=== PATIENT | female | born 1935 | race Caucasian/White ===

== ENCOUNTER 2017-04-06 12:54 | Emergency (ER) | payer OTHER ==
[~2017-04-06 12:54] MED LIST: ALDACTONE25 MG PO; CIPROFLOXACIN500 M1 PO; COREG12.5 MG PO; DEMADEX10 MG PO; FERROUS SULFAT325 M1 PO; FLONASE AL50 MCG/ACT IN; MIRAPEX0.5 MG PO; OXAYDO5 MG PO; PRILOSEC20 MG PO; TRAMADOL HCL50 MG PO; VITAMIN D-31000 UNIT PO
--- NOTE | 2017-04-06 14:27 | DIAGNOSTIC IMAGING REPORT ---
PROCEDURE: XR CHEST 1 VIEW INDICATION: SHORTNESS OF BREATH TECHNIQUE: Portable AP view 02:22 p.m. COMPARISON: None. FINDINGS: Small right basilar infiltrate versus atelectasis. Mild cardiomegaly. Mediastinum and pulmonary vessels are normal. Right shoulder anterior dislocation. IMPRESSION: 1. Small right basilar infiltrate versus atelectasis 2. Mild cardiomegaly 3. Dislocated right shoulder
--- NOTE | 2017-04-06 18:20 | ED ORDER SUMMARY ---
..... Patient: INNA BEAR OrderSheet [facility] VisitID: [id number] [place] [address] 81y, F Registration Date/Time: 04/06/2017 ORDER SHEET Weight: 65.7 kg (stated) Allergies: GENERAL ORDERS: EKG - ER Stat (13:17 04/06/2017 LNations ER Tech1 per protocol) (13:17 LNations ER Tech1) Chest 1V Urgent (14:14 04/06/2017 Marva SALINAS) (Ack 14:16 PWeiler ER Tech1) (16:43 CHernandez R.N.) Customer Supply Coordinator (Continuous) (14:14 04/06/2017 Marva SALINAS) (Ack 14:26 Shanikanandez R.N.) (14:26 CHernandez R.N.) CBC w Diff Urgent (14:14 04/06/2017 Marva SALINAS) (Ack 14:16 PWeiler ER Tech1) (14:26 CHernandez R.N.) CMP Urgent (14:14 04/06/2017 Marva SALINAS) (Ack 14:16 PWeiler ER Tech1) (14:26 Shanikanandez R.N.) Pulse oximeter (14:14 04/06/2017 Marva SALINAS) (Ack 14:26 Shanikanandez R.N.) (14:26 CHernandez R.N.) MEDICATION ORDERS: Prednisone PO 10 mg (NOW) (14:14 04/06/2017 Marva SALINAS) (Ack 14:26 Radha R.N.) (14:48 Shanikanandez R.N.) Zithromax PO 500 mg (NOW) (16:47 04/06/2017 Marva SALINAS) (17:06 DDean R.N.) IV FLUIDS: Rocephin IV 2 gm/50mL (NOW) (16:47 04/06/2017 Marva SALINAS) (17:16 DDean R.N.) IV NS : initial bolus none -, then 50 mL/hr for X1 (NOW) (for IVPB infusion) (17:16 04/06/2017 DDean R.N. per protocol) (17:17 DDean R.N.) ORDER SHEET NOTES: [Electronically signed by Deny Castrejon R.N. (18:32 04/06/2017)] [Electronically signed by Sheryl Trejo MD (06:53 04/17/2017)] [Electronically locked/signed by Deny Castrejon R.N. (18:32 04/06/2017)]
--- NOTE | 2017-04-06 18:20 | ED ORDER SUMMARY ---
..... Patient: INNA BEAR OrderSheet [facility] VisitID: [id number] [place] [address] 81y, F Registration Date/Time: 04/06/2017 ORDER SHEET Weight: 65.7 kg (stated) Allergies: GENERAL ORDERS: EKG - ER Stat (13:17 04/06/2017 LNations ER Tech1 per protocol) (13:17 LNations ER Tech1) Chest 1V Urgent (14:14 04/06/2017 Marva SALINAS) (Ack 14:16 PWeiler ER Tech1) (16:43 CHernandez R.N.) Card Puncher (Continuous) (14:14 04/06/2017 Marva SALINAS) (Ack 14:26 Shanikanandez R.N.) (14:26 CHernandez R.N.) CBC w Diff Urgent (14:14 04/06/2017 Marva SALINAS) (Ack 14:16 PWeiler ER Tech1) (14:26 CHernandez R.N.) CMP Urgent (14:14 04/06/2017 Marva SALINAS) (Ack 14:16 PWeiler ER Tech1) (14:26 Shanikanandez R.N.) Pulse oximeter (14:14 04/06/2017 Marva SALINAS) (Ack 14:26 Shanikanandez R.N.) (14:26 CHernandez R.N.) MEDICATION ORDERS: Prednisone PO 10 mg (NOW) (14:14 04/06/2017 Marva SALINAS) (Ack 14:26 Radha R.N.) (14:48 Shanikanandez R.N.) Zithromax PO 500 mg (NOW) (16:47 04/06/2017 Marva SALINAS) (17:06 DDean R.N.) IV FLUIDS: Rocephin IV 2 gm/50mL (NOW) (16:47 04/06/2017 Marva SALINAS) (17:16 DDean R.N.) IV NS : initial bolus none -, then 50 mL/hr for X1 (NOW) (for IVPB infusion) (17:16 04/06/2017 DDean R.N. per protocol) (17:17 DDean R.N.) ORDER SHEET NOTES: [Electronically signed by Deny Castrejon R.N. (18:32 04/06/2017)] [Electronically signed by Sheryl Trejo MD (06:53 04/17/2017)] [Electronically locked/signed by Deny Castrejon R.N. (18:32 04/06/2017)]
--- NOTE | 2017-04-06 18:20 | ED NURSING NOTES ---
Clinical Report - Nurses [facility] [address] [place] [address] 04/06/2017 12:54 Patient: INNA BEAR TRIAGE Triage time 12:54. Acuity: LEVEL 3. Chief Complaint: SHORTNESS OF BREATH. 12:54 04/06/17. 12:54 04/06/17. Alert. No acute distress. SEPSIS SCREEN: Sepsis Screen. Negative (no infection suspected/documented). --12:57 Alfonso Salinas R.N. 12:54 04/06/17. BP: 174/79. HR: 81. RR: 20. O2 saturation: 98% on nasal cannula at 2 liters/minute. Temp: 98.2 F (oral). Pain level now: 5/10. --12:57 Alfonso Salinas R.N. Weight: 65.7 kg stated. Height/Length: 64 inches Per Patient. BMI: 24.9. --12:54 Alfonso Salinas R.N. Medication/allergy information source: the patient and EMS. --12:57 Alfonso Salinas R.N. History Arrived by EMS. Historian: patient. Accompanied by (caregiver). 12:54 04/06/17. ( Thursday, off/on for the past few days, with left and right rib pain). She has had a cough. Treatment MARITIME PILOT: None. PAST MEDICAL HX: Immunizations not up to date. SOCIAL HX: Former smoker (quit 2006). No alcohol use or drug use. No infectious disease exposure. ABUSE ASSESSMENT: No report of abuse. FALL RISK ASSESSMENT: Fall risk assessment completed. No fall risk identified. NUTRITIONAL RISK ASSESSMENT: The nutritional risk assessment revealed no deficiencies. FUNCTIONAL ASSESSMENT: Functional assessment: no impairments noted. LEARNING NEEDS ASSESSMENT: The learning needs assessment revealed no barriers. SKIN INTEGRITY ASSESSMENT: Skin integrity risk assessment completed. No skin integrity risk identified. --12:57 Alfonso Salinas R.N. Primary physician (MONIQUE). Treatment MARITIME PILOT: See EMS report. ( EKG time 1207 by EMS-NSR). --12:59 Alfonso Salinas R.N. Treatment MARITIME PILOT: See EMS report. O2 saturation: 97 % room air. ( SOB since Thursday, history of COPD). --12:59 Alfonso Salinas R.N. Assessment 12:54 04/06/17. --12:57 Alfonso Salinas R.N. Interventions 12:54 04/06/17. ID and allergy band on patient. To treatment room. --12:57 Alfonso Salinas R.N. PHYSICAL ASSESSMENT 12:58 04/06/17. To room via stretcher. GENERAL / NEURO / PSYCH: Alert. Oriented X 4. RESPIRATORY: Mild respiratory distress. The patient can speak in full sentences. CVS: Capillary refill less than 2 seconds. SKIN: Skin is warm and dry. --12:58 Alfonso Salinas R.N. NURSING PROGRESS NOTES 12:58 04/06/17. The plan of care for this patient has been created. construction foreman, pulse oximeter and NIBP monitor placed on patient; monitor alarms on. Patient gowned. Head of bed elevated. Two patient identifiers checked. Call light placed in reach. Side rails up. Bed placed in lowest position. Brakes of bed on. --12:58 Alfonso Salinas R.N. Reassessment after oxygen administered. She is calm and resting quietly. Overall patient status is improved- she states feels better. RESPIRATORY: Decreased breath sounds in the bases bilaterally. CVS: Cardiac rhythm: normal sinus rhythm. SKIN: Skin is warm and dry. Skin color within normal limits. --13:17 Deny Castrejon R.N. 13:16 04/06/17. BP: 163/79. HR: 80. RR: 18. O2 saturation: 100% on nasal cannula at 2 liters/minute. --13:17 Deny Castrejon R.N. EKG time: (1310). EKG was ordered, performed by a tech and shown to the ED physician. --13:23 Marry Briggs ER Tech1 14:38 04/06/2017 Prednisone PO Tablets 10 mg given. Allergies verified and confirmed 5 rights. --14:48 Deny Castrejon R.N. 14:48 04/06/17. BP: 171/76. HR: 90. RR: 18. O2 saturation: 96% on nasal cannula at 2 liters/minute. --14:50 Deny Castrejon R.N. Cardiac rhythm: normal sinus rhythm. Reassessment after medication administered. She is calm and resting quietly. Overall patient status is improved- she states feels better. ( Patient was up to the commode chair to void, slight SOBOE otherwise in no distress. Settled back to bed after and given sandwich and coffee.). RESPIRATORY: No respiratory distress. CVS: Normal sinus rhythm noted. SKIN: Skin is warm and dry. Skin color within normal limits. --14:50 Deny Castrejon R.N. 15:33 04/06/17. BP: 171/101. HR: 100. RR: 18. O2 saturation: 100%. --15:36 Deny Castrejon R.N. Cardiac rhythm: normal sinus rhythm. The patient is calm and resting quietly. Overall patient status is improved- she states feels better. RESPIRATORY: No respiratory distress. SKIN: Skin is warm and dry. Skin color within normal limits. --15:36 Deny Castrejon R.N. Cardiac rhythm: normal sinus rhythm. The patient is calm and resting quietly. Overall patient status is improved- she states feels better. RESPIRATORY: No respiratory distress. SKIN: Skin is warm and dry. Skin color within normal limits. --16:10 Dney Castrejon R.N. 16:08 04/06/17. BP: 153/100. HR: 78. RR: 18. O2 saturation: 100%. --16:10 Deny Castrejon R.N. Cardiac rhythm: normal sinus rhythm. The patient is calm and resting quietly. Overall patient status is improved- she states feels better. RESPIRATORY: No respiratory distress. CVS: Normal sinus rhythm noted. SKIN: Skin is warm and dry. Skin color within normal limits. --16:41 Deny Castrejon R.N. 16:40 04/06/17. BP: 165/69. HR: 72. RR: 18. O2 saturation: 99% on nasal cannula at 2 liters/minute. --16:41 Deny Castrejon R.N. 13:15 04/06/2017 Site #1 started via IV in the left antecubital space with an 20g angiocath; one attempt. Blood drawn: rainbow set. Labeled in the presence of the patient and sent to the lab. Saline lock flushed with 10 mL saline (By Bjorn VARGAS). --17:15 Stephani Valladares R.N. 17:06 04/06/2017 Zithromax PO Tablets 500 mg given. Allergies verified and confirmed 5 rights. --17:06 Stephani Valladares R.N. 17:10 04/06/2017 Started 2 gm of Rocephin (CefTRIAXone Sodium) IVPB in bag #1 50 mL; at 150 mL/hr over 20 minute(s) via site #1 --17:16 Stephani Valladares R.N. 17:10 04/06/2017 Started bag #1 250 mL IV Fluids IV NS (Saline); at 50 mL/hr over 1 minute(s) via site #1 via IV pump. --17:17 Stephani Valladares R.N. 17:10 04/06/17. BP: 158/72. HR: 76. RR: 18. O2 saturation: 100%. Temp: deferred. Additional comments: called for ride home. --17:22 Stephani Valladares R.N. Cardiac rhythm: normal sinus rhythm. Reassessment after fluids administered and medication administered. She is calm and resting quietly. Overall patient status is improved- she states feels better. RESPIRATORY: No respiratory distress. SKIN: Skin is warm and dry. Skin color within normal limits. --17:27 Deny Castrejon R.N. 17:26 04/06/17. BP: 158/72. HR: 74. RR: 18. O2 saturation: 100% on nasal cannula at 2 liters/minute. --17:27 Deny Castrejon R.N. 17:34 04/06/2017 Rocephin IVPB Discontinued: bag #1 infused upon discharge. Total amount infused: 50 mL. IV patency established. IV site checked: no pain, redness, or swelling. IV flushed thoroughly. --17:39 Deny Castrejon R.N. 17:39 04/06/2017 IV Fluids IV NS Discontinued: bag #1 infused upon discharge. Total amount infused: 50 mL. IV patency established. IV site checked: no pain, redness, or swelling. IV flushed thoroughly. --17:39 Deny Castrejon R.N. 17:39 04/06/17. BP: 161/72. HR: 78. RR: 18. O2 saturation: 100% on nasal cannula at 2 liters/minute. --17:40 Deny Castrejon R.N. Cardiac rhythm: normal sinus rhythm. Reassessment after fluids administered and medication administered. She is calm and resting quietly. Overall patient status is improved- she states feels better. RESPIRATORY: No respiratory distress. SKIN: Skin is warm and dry. Skin color within normal limits. --17:40 Deny Castrejon R.N. 17:40 04/06/2017 Site #1 removed upon discharge. Pressure dressing applied. --17:40 Deny Castrejon R.N. ( assisted pt. up to use commode. 300cc output of urine. Assisted pt. back to bed.). --18:21 Marry Briggs, Tech1. DISPOSITION / DISCHARGE Cardiac rhythm: normal sinus rhythm. Condition at departure: improved. No learning barriers present. Discharge instructions provided and reviewed with the caregiver and patient. Reviewed medication(s) side effects, precautions, dosing and course information. Prescription(s) given to the maintenance service technician. Patient verbalized understanding. Written instructions provided in [place]. Caregiver verbalized understanding. The patient was discharged home and accompanied by caregiver. She left the Emergency Department in a wheelchair and via private vehicle. Driving (caregiver). --18:25 Deny Castrejon R.N. 18:23 04/06/17. BP: 161/72. HR: 84. RR: 20. O2 saturation: 96% on room air. Temp: 98.4 F. --18:25 Deny Castrejon R.N. Departure time: 18:31. --18:31 Deny Castrejon R.N. Locked/Released at 04/06/2017 18:32 by Deny Castrejon R.N.
--- NOTE | 2017-04-06 18:20 | ED NURSING NOTES ---
Clinical Report - Nurses [facility] [address] [place] [address] 04/06/2017 12:54 Patient: INNA BEAR TRIAGE Triage time 12:54. Acuity: LEVEL 3. Chief Complaint: SHORTNESS OF BREATH. 12:54 04/06/17. 12:54 04/06/17. Alert. No acute distress. SEPSIS SCREEN: Sepsis Screen. Negative (no infection suspected/documented). --12:57 Alfonso Salinas R.N. 12:54 04/06/17. BP: 174/79. HR: 81. RR: 20. O2 saturation: 98% on nasal cannula at 2 liters/minute. Temp: 98.2 F (oral). Pain level now: 5/10. --12:57 Alfonso Salinas R.N. Weight: 65.7 kg stated. Height/Length: 64 inches Per Patient. BMI: 24.9. --12:54 Alfonso Salinas R.N. Medication/allergy information source: the patient and EMS. --12:57 Alfonso Salinas R.N. History Arrived by EMS. Historian: patient. Accompanied by (caregiver). 12:54 04/06/17. ( Thursday, off/on for the past few days, with left and right rib pain). She has had a cough. Treatment MEALS ON WHEELS DRIVER: None. PAST MEDICAL HX: Immunizations not up to date. SOCIAL HX: Former smoker (quit 2006). No alcohol use or drug use. No infectious disease exposure. ABUSE ASSESSMENT: No report of abuse. FALL RISK ASSESSMENT: Fall risk assessment completed. No fall risk identified. NUTRITIONAL RISK ASSESSMENT: The nutritional risk assessment revealed no deficiencies. FUNCTIONAL ASSESSMENT: Functional assessment: no impairments noted. LEARNING NEEDS ASSESSMENT: The learning needs assessment revealed no barriers. SKIN INTEGRITY ASSESSMENT: Skin integrity risk assessment completed. No skin integrity risk identified. --12:57 Alfonso Salinas R.N. Primary physician (MONIQUE). Treatment MEALS ON WHEELS DRIVER: See EMS report. ( EKG time 1207 by EMS-NSR). --12:59 Alfonso Salinas R.N. Treatment MEALS ON WHEELS DRIVER: See EMS report. O2 saturation: 97 % room air. ( SOB since Thursday, history of COPD). --12:59 Alfonso Salinas R.N. Assessment 12:54 04/06/17. --12:57 Alfonso Salinas R.N. Interventions 12:54 04/06/17. ID and allergy band on patient. To treatment room. --12:57 Alfonso Salinas R.N. PHYSICAL ASSESSMENT 12:58 04/06/17. To room via stretcher. GENERAL / NEURO / PSYCH: Alert. Oriented X 4. RESPIRATORY: Mild respiratory distress. The patient can speak in full sentences. CVS: Capillary refill less than 2 seconds. SKIN: Skin is warm and dry. --12:58 Alfonso Salinas R.N. NURSING PROGRESS NOTES 12:58 04/06/17. The plan of care for this patient has been created. potline monitor, pulse oximeter and NIBP monitor placed on patient; monitor alarms on. Patient gowned. Head of bed elevated. Two patient identifiers checked. Call light placed in reach. Side rails up. Bed placed in lowest position. Brakes of bed on. --12:58 Alfonso Salinas R.N. Reassessment after oxygen administered. She is calm and resting quietly. Overall patient status is improved- she states feels better. RESPIRATORY: Decreased breath sounds in the bases bilaterally. CVS: Cardiac rhythm: normal sinus rhythm. SKIN: Skin is warm and dry. Skin color within normal limits. --13:17 Deny Castrejon R.N. 13:16 04/06/17. BP: 163/79. HR: 80. RR: 18. O2 saturation: 100% on nasal cannula at 2 liters/minute. --13:17 Deny Castrejon R.N. EKG time: (1310). EKG was ordered, performed by a tech and shown to the ED physician. --13:23 Marry Briggs ER Tech1 14:38 04/06/2017 Prednisone PO Tablets 10 mg given. Allergies verified and confirmed 5 rights. --14:48 Deny Castrejon R.N. 14:48 04/06/17. BP: 171/76. HR: 90. RR: 18. O2 saturation: 96% on nasal cannula at 2 liters/minute. --14:50 Deny Castrejon R.N. Cardiac rhythm: normal sinus rhythm. Reassessment after medication administered. She is calm and resting quietly. Overall patient status is improved- she states feels better. ( Patient was up to the commode chair to void, slight SOBOE otherwise in no distress. Settled back to bed after and given sandwich and coffee.). RESPIRATORY: No respiratory distress. CVS: Normal sinus rhythm noted. SKIN: Skin is warm and dry. Skin color within normal limits. --14:50 Deny Castrejon R.N. 15:33 04/06/17. BP: 171/101. HR: 100. RR: 18. O2 saturation: 100%. --15:36 Deny Castrejon R.N. Cardiac rhythm: normal sinus rhythm. The patient is calm and resting quietly. Overall patient status is improved- she states feels better. RESPIRATORY: No respiratory distress. SKIN: Skin is warm and dry. Skin color within normal limits. --15:36 Deny Castrejon R.N. Cardiac rhythm: normal sinus rhythm. The patient is calm and resting quietly. Overall patient status is improved- she states feels better. RESPIRATORY: No respiratory distress. SKIN: Skin is warm and dry. Skin color within normal limits. --16:10 Deny Castrejon R.N. 16:08 04/06/17. BP: 153/100. HR: 78. RR: 18. O2 saturation: 100%. --16:10 Deny Castrejon R.N. Cardiac rhythm: normal sinus rhythm. The patient is calm and resting quietly. Overall patient status is improved- she states feels better. RESPIRATORY: No respiratory distress. CVS: Normal sinus rhythm noted. SKIN: Skin is warm and dry. Skin color within normal limits. --16:41 Deny Castrejon R.N. 16:40 04/06/17. BP: 165/69. HR: 72. RR: 18. O2 saturation: 99% on nasal cannula at 2 liters/minute. --16:41 Deny Castrejon R.N. 13:15 04/06/2017 Site #1 started via IV in the left antecubital space with an 20g angiocath; one attempt. Blood drawn: rainbow set. Labeled in the presence of the patient and sent to the lab. Saline lock flushed with 10 mL saline (By Bjorn VARGAS). --17:15 Stephani Valladares R.N. 17:06 04/06/2017 Zithromax PO Tablets 500 mg given. Allergies verified and confirmed 5 rights. --17:06 Stephani Valladares R.N. 17:10 04/06/2017 Started 2 gm of Rocephin (CefTRIAXone Sodium) IVPB in bag #1 50 mL; at 150 mL/hr over 20 minute(s) via site #1 --17:16 Stephani Valladares R.N. 17:10 04/06/2017 Started bag #1 250 mL IV Fluids IV NS (Saline); at 50 mL/hr over 1 minute(s) via site #1 via IV pump. --17:17 Stephani Valladares R.N. 17:10 04/06/17. BP: 158/72. HR: 76. RR: 18. O2 saturation: 100%. Temp: deferred. Additional comments: called for ride home. --17:22 Stephani Valladares R.N. Cardiac rhythm: normal sinus rhythm. Reassessment after fluids administered and medication administered. She is calm and resting quietly. Overall patient status is improved- she states feels better. RESPIRATORY: No respiratory distress. SKIN: Skin is warm and dry. Skin color within normal limits. --17:27 Deny Castrejon R.N. 17:26 04/06/17. BP: 158/72. HR: 74. RR: 18. O2 saturation: 100% on nasal cannula at 2 liters/minute. --17:27 Deny Castrejon R.N. 17:34 04/06/2017 Rocephin IVPB Discontinued: bag #1 infused upon discharge. Total amount infused: 50 mL. IV patency established. IV site checked: no pain, redness, or swelling. IV flushed thoroughly. --17:39 Deny Castrejon R.N. 17:39 04/06/2017 IV Fluids IV NS Discontinued: bag #1 infused upon discharge. Total amount infused: 50 mL. IV patency established. IV site checked: no pain, redness, or swelling. IV flushed thoroughly. --17:39 Deny Castrejon R.N. 17:39 04/06/17. BP: 161/72. HR: 78. RR: 18. O2 saturation: 100% on nasal cannula at 2 liters/minute. --17:40 Deny Castrejon R.N. Cardiac rhythm: normal sinus rhythm. Reassessment after fluids administered and medication administered. She is calm and resting quietly. Overall patient status is improved- she states feels better. RESPIRATORY: No respiratory distress. SKIN: Skin is warm and dry. Skin color within normal limits. --17:40 Deny Castrejon R.N. 17:40 04/06/2017 Site #1 removed upon discharge. Pressure dressing applied. --17:40 Deny Castrejon R.N. ( assisted pt. up to use commode. 300cc output of urine. Assisted pt. back to bed.). --18:21 Marry Briggs, Tech1. DISPOSITION / DISCHARGE Cardiac rhythm: normal sinus rhythm. Condition at departure: improved. No learning barriers present. Discharge instructions provided and reviewed with the caregiver and patient. Reviewed medication(s) side effects, precautions, dosing and course information. Prescription(s) given to the housekeeping worker. Patient verbalized understanding. Written instructions provided in [place]. Caregiver verbalized understanding. The patient was discharged home and accompanied by caregiver. She left the Emergency Department in a wheelchair and via private vehicle. Driving (caregiver). --18:25 Deny Castrejon R.N. 18:23 04/06/17. BP: 161/72. HR: 84. RR: 20. O2 saturation: 96% on room air. Temp: 98.4 F. --18:25 Deny Castrejon R.N. Departure time: 18:31. --18:31 Deny Castrejon R.N. Locked/Released at 04/06/2017 18:32 by Deny Castrejon R.N.
--- NOTE | 2017-04-06 18:20 | ED CLINICAL REPORT ---
Clinical Report - Physicians/Mid Levels [facility] [address] [place] [address] 04/06/2017 12:54 Patient: INNA BEAR Time Seen: 12:57. Arrived- By private vehicle. Historian- patient. HISTORY OF PRESENT ILLNESS Chief Complaint: DYSPNEA and cough. This started several days ago and is still present. The dyspnea is described as moderate. The dyspnea is worsened by exertion and cough (nothing improves). The patient has had a cough and dyspnea on exertion. She has had scant amounts of thick, yellow sputum. No fever, sweating episodes, wheezing or chills. No chest pain or discomfort, calf pain, foot swelling or anxiety. No dizziness, tingling, numbness or palpitations. Similar symptoms previously: Recent medical care: Not recently seen/assessed. REVIEW OF SYSTEMS The patient has not had weight loss. No muscle aches, eye irritation, sore throat, nasal discharge or sinus drainage. No nausea, vomiting, abdominal pain, diarrhea or black stools. No bloody stools, headache, fainting episodes, blurred vision or difficulty with urination. No skin rash, enlarged lymph nodes or joint pain. All systems otherwise negative, except as recorded above. PAST HISTORY Problems: Arthritis. Additional Surgeries: no known surgeries. SOCIAL HISTORY Former smoker, end date 2006. No alcohol use or drug use. ADDITIONAL NOTES The nursing notes have been reviewed. PHYSICAL EXAM Vital Signs: 04/06/2017 12:54 BP: 174/79. HR: 81. RR: 20. O2 saturation: 98%. Temp: 98.2 F. Pain level now: 5/10. Have been reviewed. Appearance: Alert. No acute distress. (Patient has an intermittent cough.). Eyes: Pupils equal, round and reactive to light. Eyes normal inspection. ENT: Nose normal. Neck: Normal inspection. CVS: Normal heart rate and rhythm. Heart sounds normal. Pulses normal. Respiratory: No respiratory distress. Breath sounds normal. Abdomen: Soft and nontender. Back: Normal inspection. Skin: Skin warm and dry. Normal skin color. No rash. Normal skin turgor. Extremities: No lower extremity edema. Neuro: (grossly intact.). LABS, X-RAYS, AND EKG EKG: EKG time: (1310). No acute process. No acute ischemia. Normal EKG. Normal sinus rhythm. Rate: 78. Normal P waves. Normal SHANE. Normal QRS complex. Normal axis. Normal ST and T waves, QT and QTc. Prior EKG unavailable. The study has been interpreted contemporaneously by me. The study has been independently viewed by me. The EKG appears to be a good tracing. I agree with and confirm the computer reading of the EKG. Rhythm Strip #1: Time: (1258). Rate= 81. Normal sinus rhythm. Regular rhythm. Narrow QRS complexes. No ectopy. Conduction normal. Normal ST segments and T waves. The study was interpreted by me. Chest X-ray: Small, patchy infiltrate in the right lung base and right lower lobe. Consistent with pneumonia. Normal heart size. Mediastinum normal. Great vessels normal. Soft tissues normal. No fracture. No bony lesion present. Views: AP (portable). Technique: good. The X-rays were independently viewed by me, interpreted by the radiologist and contemporaneously by me and discussed with the radiologist. Prior films were not available for comparison. Laboratory Tests: CBC w Diff: (MARGIE: 04/06/2017 13:02) ( MsgRcvd 04/06/2017 15:37) Final results Test Result Flag Units (Reference) WHITE BLOOD COUNT 8.9 K/uL (4.5-11.5) RED BLOOD COUNT 4.16 M/uL (4.00-5.20) HEMOGLOBIN 9.7 L gm/dL (12.0-16.0) HEMATOCRIT 32.4 L % (36.0-46.0) MEAN CELL VOLUME 78 L fL (80-100) MEAN CORPUSCULAR HGB 23 L pg (26-34) MEAN CORPUSCULAR HGB CONC 30 L g/dL (31-37) RED CELL DISTRIBUTION WIDTH 20.7 H % (11.6-14.8) PLATELET COUNT 546 H K/uL (150-400) NEUTROPHIL % 77.6 H % (50-75) LYMPH % 10.3 L % (25-40) MONO % 10.0 % (3-14) EOSINOPHIL % 1.8 % (0-4) BASOPHIL % 0.3 % (0-2) RBC MORPHOLOGY ANISOCYTOSIS 3+~~HYPOCHROMASIA 1+ CMP: (MARGIE: 04/06/2017 13:02) ( MsgRcvd 04/06/2017 14:34) Final results Test Result Flag Units (Reference) GLUCOSE 95 mg/dL (70-110) BUN 22 H mg/dL (7-18) CREATININE 1.2 mg/dL (0.6-1.3) Estimated GFR 45.71 mL/min Estimated GFR- 55.40 mL/min Note: Persistent reduction over 3 months in eGFR<60 mL/min/1.73 m2 defines CKD. Patients with eGFR values>=60 mL/min/1.73 m2 may also have CKD if evidence ofpersistent proteinuria. Additional information may be foundat www.kidney.org. SODIUM 144 mmol/L (136-145) POTASSIUM 4.6 mmol/L (3.5-5.1) CHLORIDE 106 mmol/L (98-107) CARBON DIOXIDE 32 mmol/L (21-32) CALCIUM 8.0 L mg/dL (8.5-10.1) TOTAL PROTEIN 6.9 g/dL (6.4-8.2) ALBUMIN 2.6 L g/dL (3.3-5.0) BILIRUBIN, TOTAL 0.2 mg/dL (0.0-1.0) ALKALINE PHOSPHATASE 78 U/L (46-116) AST (SGOT) 14 L U/L (15-37) ALT (SGPT) 11 L U/L (12-78) . Pulse Oximetry: 04/06/2017 12:54 O2 saturation: 98%. (FIO2 - room air). Interpretation: normal. PROGRESS AND PROCEDURES Course of Care: Pt was treated in the ED with IV fluids, prednisone, Rocephin, and Zithromax. Her chest x-ray showed a RLL pneumonia, and labs were unremarkable. Pt was found to be feeling better, and felt well enough to go home. Patient and caregiver counseled in person regarding the patient's stable condition, test results, diagnosis and need for follow-up. Concerns were addressed. Old medical records reviewed. Disposition: Discharged. Condition: stable and improved. CLINICAL IMPRESSION Bacterial pneumonia. Vital signs recorded and reviewed; empiric antibiotics given in the ED. INSTRUCTIONS (Your x-ray showed a small area of pneumonia in your right lower lung. 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 Warnings: GENERAL WARNINGS: Return or contact your physician immediately if your condition worsens or changes unexpectedly, if not improving as expected, or if other problems arise. Prescription Medications: Zithromax Z-Bert: take 2 orally today, followed by 1 orally every day for the next 4 days. Total course 5 days. No refills. Substitution is permissible. Follow-up: Follow up with your doctor in seven days if not better. Understanding of the discharge instructions verbalized by patient. Discharge instructions reviewed with and understanding was verbalized by caregiver. (Electronically signed by Sheryl Trejo MD 04/17/2017 6:53)
--- NOTE | 2017-04-17 06:53 | ED DISCHARGE INSTRUCTIONS ---
Patient: INNA BEAR General Instructions [facility] VisitID: [id number] [place] [address] 81y, F Registration Date/Time: 04/06/2017 Bacterial pneumonia. Vital signs recorded and reviewed; empiric antibiotics given in the ED. INSTRUCTIONS (Your x-ray showed a small area of pneumonia in your right lower lung. 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 Warnings: GENERAL WARNINGS: Return or contact your physician immediately if your condition worsens or changes unexpectedly, if not improving as expected, or if other problems arise. Prescription Medications: Zithromax Z-Bert: take 2 orally today, followed by 1 orally every day for the next 4 days. Total course 5 days. No refills. Substitution is permissible. Follow-up: Follow up with your doctor in seven days if not better. Understanding of the discharge instructions verbalized by patient. Discharge instructions reviewed with and understanding was verbalized by caregiver. ADDITIONAL INFORMATION Pneumonia (Adult) Pneumonia is an infection deep within the lung, in the small air sacs (alveoli). It may be due to a virus or bacteria and is usually treated with an antibiotic. Severe cases require treatment in the hospital. Milder cases can be treated at home. Symptoms usually start to improve during the first2 days of treatment. Home Care: Rest at home for the first 23 days or until you feel stronger. When resuming activity, dont let yourself become overly tired. Avoid exposure to cigarette smoke (yours or others). You may use acetaminophen (Tylenol) or ibuprofen (Motrin, Advil) to control fever or pain, unless another medicine was prescribed. [NOTE: If you have chronic liver or kidney disease or ever had a stomach ulcer or GI bleeding, talk with your doctor before using these medicines.] (Aspirin should never be used in anyone under 18 years of age who is ill with a fever. It may cause severe liver damage.) Your appetite may be poor so a light diet is fine. Keep well hydrated by drinking 68 glasses of fluids per day (water, sport drinks such as Gatorade, sodas without caffeine, juices, tea, soup, etc.). This will help loosen secretions in the lung, making it easier for you to cough up the phlegm (sputum). If you also have heart or kidney disease, check with your doctor before you drink extra amounts of fluids. Finish all antibiotic medicine prescribed, even if you are feeling better after a few days. Follow Up with your doctor in the next 23 days (or as advised) to be sure you are responding properly to the medicine. [NOTE: If you are age 65 or older, or if you have chronic lung disease (asthma, emphysema or COPD), we recommendthe pneumococcal vaccination and a yearlyinfluenzavaccination(flu-shot) every . Ask your doctor about this.] Get Prompt Medical Attention if any of the following occur: Not getting better within the first 48 hours of treatment Increasing shortness of breath or rapid breathing (over 25 breaths/minute) Coughing up blood or increasing chest pain with breathing Fever of 100.4F (38C) oral or higher, not better with fever medication Increasing weakness, dizziness or fainting Increasing thirst or dry mouth Sinus pain, headache or a stiff neck Chest pain not caused by coughing You have been given the following additional information: Pneumonia (Adult) (Electronically signed by Sheryl Trejo MD 04/17/2017 6:53)
--- NOTE | 2017-04-17 06:53 | ED MED RECONCILIATION SUMMARY ---
Patient: INNA BEAR Medication Reconciliation Report [facility] VisitID: [id number] [place] [address] 81y, F Registration Date/Time: 04/06/2017 Weight: 65.7 kg Height/Length: 64 in. BMI: 24.9 ALLERGIES: The patient's Home Medications are listed below: Not obtained. The source(s) of the original Home Medication information: patient EMS The following Medications were given to the patient in the Emergency Department: Prednisone [PO] PO 10 mg, administered: 04/06/2017 2:38:00 PM Zithromax [PO] PO 500 mg, administered: 04/06/2017 5:06:00 PM Rocephin [IVPB] IVPB bolus 0, then 2 gm 150 mL/hr, administered: 04/06/2017 5:10:00 PM IV NS IV Fluids bolus 0, then 50 mL/hr, administered: 04/06/2017 5:10:00 PM The following Medications were prescribed to the patient: Zithromax Z-Bert: take 2 orally today, followed by 1 orally every day for the next 4 days. Total course 5 days. No refills. Substitution is permissible. -- Sheryl Trejo MD
--- NOTE | 2017-04-17 06:53 | ED MED RECONCILIATION SUMMARY ---
Patient: INNA BEAR Medication Reconciliation Report [facility] VisitID: [id number] [place] [address] 81y, F Registration Date/Time: 04/06/2017 Weight: 65.7 kg Height/Length: 64 in. BMI: 24.9 ALLERGIES: The patient's Home Medications are listed below: Not obtained. The source(s) of the original Home Medication information: patient EMS The following Medications were given to the patient in the Emergency Department: Prednisone [PO] PO 10 mg, administered: 04/06/2017 2:38:00 PM Zithromax [PO] PO 500 mg, administered: 04/06/2017 5:06:00 PM Rocephin [IVPB] IVPB bolus 0, then 2 gm 150 mL/hr, administered: 04/06/2017 5:10:00 PM IV NS IV Fluids bolus 0, then 50 mL/hr, administered: 04/06/2017 5:10:00 PM The following Medications were prescribed to the patient: Zithromax Z-Bert: take 2 orally today, followed by 1 orally every day for the next 4 days. Total course 5 days. No refills. Substitution is permissible. -- Sheryl Trejo MD
--- NOTE | 2017-04-17 06:53 | ED MAR SUMMARY ---
..... Medication Administration Record [facility] [address] [place] [address] Patient: INNA BEAR Visit ID: [id number] 81y, F Weight: 65.7 kg Height/Length: 64 in BMI: 24.9 ALLERGIES: Given 14:38 04/06/2017 Deny Castrejon R.N. Medication Administered: PREDNISONE [PO], Dose: 10 mg Tablets PO. Medication Ordered: Prednisone PO 10 mg (NOW). Given 17:04/06/2017 Stephani Valladares R.N. Medication Administered: ZITHROMAX [PO], Dose: 500 mg Tablets PO. Medication Ordered: Zithromax PO 500 mg (NOW). Start 17:10 04/06/2017 Stephani Valladares R.N., Stop 17:39 04/06/2017 Deny Castrejon R.N. Medication Administered: IV NS (SALINE), Dose: IV Fluids over 1 minute(s), Rate: 50 mL/hr, Dispensed: 250 mL bag, Site: #1 left AC. Medication Ordered: IV NS : initial bolus none -, then 50 mL/hr for X1 (NOW) (for IVPB infusion). Start 17:10 04/06/2017 Stephani Valladares R.N., Stop 17:34 04/06/2017 Deny Castrejon R.N. Medication Administered: ROCEPHIN [IVPB] (CEFTRIAXONE SODIUM), Dose: 2 gm IVPB over 20 minute(s), Rate: 150 mL/hr, Dispensed: 50 mL bag, Site: #1 left AC. Medication Ordered: Rocephin IV 2 gm/50mL (NOW).
--- NOTE | 2017-04-17 06:53 | ED MAR SUMMARY ---
..... Medication Administration Record [facility] [address] [place] [address] Patient: INNA BEAR Visit ID: [id number] 81y, F Weight: 65.7 kg Height/Length: 64 in BMI: 24.9 ALLERGIES: Given 14:38 04/06/2017 Deny Castrejon R.N. Medication Administered: PREDNISONE [PO], Dose: 10 mg Tablets PO. Medication Ordered: Prednisone PO 10 mg (NOW). Given 17:04/06/2017 Stephani Valladares R.N. Medication Administered: ZITHROMAX [PO], Dose: 500 mg Tablets PO. Medication Ordered: Zithromax PO 500 mg (NOW). Start 17:10 04/06/2017 Stephani Valladares R.N., Stop 17:39 04/06/2017 Deny Castrejon R.N. Medication Administered: IV NS (SALINE), Dose: IV Fluids over 1 minute(s), Rate: 50 mL/hr, Dispensed: 250 mL bag, Site: #1 left AC. Medication Ordered: IV NS : initial bolus none -, then 50 mL/hr for X1 (NOW) (for IVPB infusion). Start 17:10 04/06/2017 Stephani Valladares R.N., Stop 17:34 04/06/2017 Deny Castrejon R.N. Medication Administered: ROCEPHIN [IVPB] (CEFTRIAXONE SODIUM), Dose: 2 gm IVPB over 20 minute(s), Rate: 150 mL/hr, Dispensed: 50 mL bag, Site: #1 left AC. Medication Ordered: Rocephin IV 2 gm/50mL (NOW).
== END 2017-04-06 18:32 | disposition home or self-care (01) ==
LOC: ED SRH 12:54
DX: J15.9 Unspecified bacterial pneumonia (principal); Z87.891 Personal history of nicotine dependence
CPT/HCPCS: 90100; 95059